=== PATIENT | male | born 1950 | race Caucasian/White ===

== ENCOUNTER 2019-07-31 15:19 | Inpatient (IN) | payer MEDICARE, OTHER ==
[~2019-07-31] VITALS: Ht 182.9 cm; Wt 103.6 kg
[~2019-07-31 15:19] MED LIST: ASPI-845 PO
[2019-07-31 15:54] LABS: BASOPHILS # (AUTO) 0.1 X10'3 (0-0.2); BASOPHILS % (AUTO) 0.2 % (0-1); EOSINOPHILS % (AUTO) 0 % (0-6); HEMATOCRIT 47.9 % (42.0-52.0); HEMOGLOBIN 16.1 g/dl (14.0-17.9); LYMPHOCYTES # (AUTO) 0.8 X10'3 (1.1-4.8); LYMPHOCYTES % (AUTO) 2.7 % (21-51); MEAN CORPUSCULAR HEMOGLOBIN 28.7 PG (27.0-31.0); MEAN CORPUSCULAR HGB CONC 33.5 g/dL (33.0-36.5); MEAN CORPUSCULAR VOLUME 85.5 FL (78-98); MEAN PLATELET VOLUME 8.1 FL (7.4-10.4); MONOCYTES # (AUTO) 1.7 X10'3 (0-0.9); MONOCYTES % (AUTO) 5.7 % (2-12); NEUTROPHILS # (AUTO) 28.2 X10'3 (1.8-7.7); NEUTROPHILS % (AUTO) 91.4 % (42-75); PLATELET COUNT 264 X10'3 (140-440); RED BLOOD COUNT 5.61 X10'6 (4.70-6.10); RED CELL DISTRIBUTION WIDTH 13.7 % (11.5-14.5)
[2019-07-31 15:57] LABS: WHITE BLOOD COUNT 30.8 X10'3 (4.5-11.0)
[2019-07-31] MEDS ORDERED: acetaminophen 325mg tablet PO STA (15:57)
[2019-07-31] MEDS ORDERED: normal saline 1000ML IV soln IV ONE ×2 (16:00→16:25)
[2019-07-31 16:03] LABS: ALANINE AMINOTRANSFERASE 24 U/L (12-78); ALBUMIN 3.2 G/DL (3.4-5.0); ALBUMIN/GLOBULIN RATIO 0.7 (1.1-1.5); ALKALINE PHOSPHATASE 82 IU/L (46-116); ANION GAP 10 (8-16); ASPARTATE AMINO TRANSFERASE 20 U/L (10-37); BILIRUBIN,TOTAL 0.7 MG/DL (0.1-1.0); BLOOD UREA NITROGEN 18 MG/DL (7-18); BUN/CREATININE RATIO 12.7 (5.4-32.0); CALCIUM 8.2 MG/DL (8.5-10.1); CHLORIDE 100 MMOL/L (99-107); CREATININE 1.42 MG/DL (0.60-1.10); GLUCOSE 124 MG/DL (70-104); POTASSIUM 3.9 MMOL/L (3.5-5.1); SODIUM 135 MMOL/L (135-145); TOTAL CARBON DIOXIDE 24.7 MMOL/L (24-32); TOTAL PROTEIN 7.9 G/DL (6.4-8.2); eGFR 49 ML/MIN
[2019-07-31 16:12] LABS: MAGNESIUM 1.6 MG/DL (1.5-2.4)
[2019-07-31 16:15] LABS: PLATELET ESTIMATE NORMAL; TOTAL CELLS COUNTED 100
[2019-07-31] MEDS ORDERED: CefTRIAXone 2gm/D5W 50ml 50 ML IV ONE (16:25)
[2019-07-31] MEDS ORDERED: levoFLOXACIN-Levaquin 750MG/D5 150 ML IV ONE (16:25)
[2019-07-31 16:32] LABS: PARTIAL THROMBOPLASTIN TIME 28 SECONDS (22-32)
--- NOTE | 2019-07-31 16:38 | NUR ---
PT HAVING A VASCULAR STUDY ON HIS CAROTID DONE AT BEDSIDE.
[2019-07-31] MEDS ORDERED: BRIM5DRO3 EACHEYE (17:50)
[2019-07-31] MEDS ORDERED: MULT-1085 PO (17:50)
[2019-07-31] MEDS ORDERED: ASPI-107 PO (17:50)
[2019-07-31 17:51] LABS: CLARITY,URINE CLOUDY (Clear); COLOR,URINE YELLOW (Yellow); GLUCOSE, URINE NEGATIVE (Neg); KETONES,URINE TRACE mg/dl (Neg); LEUKOCYTE ESTERASE ,URINE NEGATIVE (Neg); NITRITES, URINE NEGATIVE (Neg); OCCULT BLOOD,URINE TRACE-INTACT (Neg); PROTEIN,URINE 100 mg/dl (Neg)
[2019-07-31] MEDS ORDERED: iohexol 350MG/ML 100ml bottle IV ONE (17:52)
[2019-07-31] MEDS ORDERED: potassium Cl 20 mEq SR tablet PO PRN (18:00)
[2019-07-31] MEDS ORDERED: morphine 4 MG/ML inj SYRINge IV PRN (18:00)
[2019-07-31] MEDS ORDERED: ondansetron/PF 4mg/2ml inj IV PRN (18:00)
[2019-07-31] MEDS ORDERED: CefTRIAXone/D5W-Rocephin 1gm 50 ML IV ONE (18:00)
[2019-07-31] MEDS ORDERED: potassium CL 10mEq/100ml bag 100 ML IV PRN ×2 (18:00)
[2019-07-31] MEDS ORDERED: morphine 2 MG/ML inj. syringe IV PRN (18:00)
[2019-07-31] MEDS ORDERED: acetaminophen 325mg tablet PO PRN (18:00)
[2019-07-31 18:01] LABS: UA COLLECTION TYPE FOLEY CATH
[2019-07-31 18:09] LABS: RBC,URINE 0-2 /HPF (0-2)
[2019-07-31 18:10] LABS: AMORPHOUS URATES 3+
[2019-07-31 18:11] LABS: BACTERIA,URINE FEW /HPF (Neg); MUCUS STRANDS MODERATE /LPF (Neg); SQUAMOUS EPITHELIAL CELL,UR NONE SEEN /LPF (FEW); TRANSITIONAL EPI CELLS,URINE MODERATE /HPF
[2019-07-31 18:14] LABS: CELLULAR CAST 0-4 /LPF (NEGATIVE); FINE GRANULAR CAST 0-3 /LPF (NEGATIVE)
[2019-07-31] MEDS: heparin 25,000 UNIT/250ml bag 250 ML IV SCH (18:25)
[2019-07-31] MEDS: heparin 10,000 units/1 ML INJ IV PRN (18:35)
--- NOTE | 2019-07-31 18:39 | NUR ---
PT LYING SUPINE IN BED WITH FAMILY AT BEDSIDE. UPDATED PT ON PLAN OF CARE. NO DISTRESS NOTED. NO FURTHER NEEDS. WILL CONTINUE TO MONITOR.
[2019-07-31] MEDS ORDERED: heparin, porcine 5000 units/ml vial SQ SCH (20:00)
[2019-07-31] MEDS: docusate sod 100mg capsule PO SCH (20:00)
[2019-07-31 20:03] VITALS: BP 123/72
[2019-07-31] MEDS: normal saline 1000ml 1,000 ML IV SCH (20:43)
--- NOTE | 2019-07-31 20:52 | NUR ---
Dr. Marks at bedside assessing patient. States regular diet need to find source of infection prior to or for carotid stenosis, Dr Marks stated OR saturday if infection is controlled
[2019-07-31 21:00] VITALS: BP 123/75
[2019-07-31] MEDS: sennosides/docusate sodium tablet PO SCH (21:00)
[2019-07-31 22:00] VITALS: BP 111/81
[2019-07-31 23:00] VITALS: BP 136/84
[2019-08-01] VITALS (24 sets, daily range): BP systolic 132–177; BP diastolic 75–107
[2019-08-01] MEDS: brimonidine 0.2% 5 ML ophthalmic drops EACHEYE SCH ×3 (00:27→20:27)
[2019-08-01] MEDS: normal saline 1000ml 1,000 ML IV SCH ×5 (00:36→23:45)
[2019-08-01] MEDS: heparin 25,000 UNIT/250ml bag 250 ML IV SCH ×2 (04:27→22:22)
[2019-08-01 06:15] LABS: ALANINE AMINOTRANSFERASE 17 U/L (12-78); ALBUMIN 2.4 G/DL (3.4-5.0); ALBUMIN/GLOBULIN RATIO 0.6 (1.1-1.5); ALKALINE PHOSPHATASE 64 IU/L (46-116); ANION GAP 9 (8-16); ASPARTATE AMINO TRANSFERASE 9 U/L (10-37); BILIRUBIN,TOTAL 0.5 MG/DL (0.1-1.0); BLOOD UREA NITROGEN 17 MG/DL (7-18); BUN/CREATININE RATIO 18.7 (5.4-32.0); CALCIUM 7.2 MG/DL (8.5-10.1); CHLORIDE 104 MMOL/L (99-107); CREATININE 0.91 MG/DL (0.60-1.10); GLUCOSE 97 MG/DL (70-104); MAGNESIUM 1.6 MG/DL (1.5-2.4); PHOSPHORUS 2.3 MG/DL (2.3-4.5); POTASSIUM 3.7 MMOL/L (3.5-5.1); SODIUM 136 MMOL/L (135-145); TOTAL CARBON DIOXIDE 23.1 MMOL/L (24-32); TOTAL PROTEIN 6.3 G/DL (6.4-8.2); eGFR 82 ML/MIN
[2019-08-01 06:24] LABS: BASOPHILS % (AUTO) 0.1 % (0-1); EOSINOPHILS % (AUTO) 0 % (0-6); HEMATOCRIT 41.6 % (42.0-52.0); HEMOGLOBIN 13.7 g/dl (14.0-17.9); LYMPHOCYTES # (AUTO) 0.8 X10'3 (1.1-4.8); LYMPHOCYTES % (AUTO) 3.8 % (21-51); MEAN CORPUSCULAR HEMOGLOBIN 28.6 PG (27.0-31.0); MEAN CORPUSCULAR VOLUME 86.6 FL (78-98); MEAN PLATELET VOLUME 8.3 FL (7.4-10.4); MONOCYTES # (AUTO) 1.1 X10'3 (0-0.9); MONOCYTES % (AUTO) 5.5 % (2-12); NEUTROPHILS # (AUTO) 18.2 X10'3 (1.8-7.7); NEUTROPHILS % (AUTO) 90.6 % (42-75); PLATELET COUNT 221 X10'3 (140-440); RED CELL DISTRIBUTION WIDTH 13.4 % (11.5-14.5); WHITE BLOOD COUNT 20.1 X10'3 (4.5-11.0)
--- NOTE | 2019-08-01 06:42 | NUR ---
SBAR to Gatito STANLEY no questions or concerns after assuming care
[2019-08-01] MEDS: docusate sod 100mg capsule PO SCH ×2 (08:00→20:00)
[2019-08-01] MEDS: heparin 10,000 units/1 ML INJ IV PRN ×3 (08:28→22:23)
[2019-08-01] MEDS: aspirin 81mg tablet.DR PO SCH (08:34)
[2019-08-01] MEDS: clopidogrel 75mg tablet PO SCH (08:34)
[2019-08-01] MEDS: multivitamins, therapeutics tablet PO SCH (08:34)
[2019-08-01] MEDS: CefTRIAXone/D5W-Rocephin 1gm 50 ML IV SCH (08:41)
[2019-08-01] MEDS: acetaminophen 325mg tablet PO PRN ×2 (11:04→16:40)
[2019-08-01 17:55] LABS: C DIFF SPECIMEN=DIARRHEA? ACCEPTABLE; C DIFFICILE TOXINS A&B NEGATIVE (Neg)
[2019-08-01 17:56] LABS: C DIFF ANTIGEN NEGATIVE (NEGATIVE)
--- NOTE | 2019-08-01 18:47 | NUR ---
Patient in room CICU 2011. I have received report from Gatito STANLEY and had the opportunity to ask questions and assume patient care. Patient resting in bed comfortably with family at bedside, in no apparent distress. Patient saturating at 95% on room air, HR in low 100s in sinus tachycardia. Heparin infusing per MD orders. Will continue to monitor patient.
[2019-08-01] MEDS: sennosides/docusate sodium tablet PO SCH (20:25)
[2019-08-02] VITALS (17 sets, daily range): BP systolic 107–170; BP diastolic 64–109
[2019-08-02 06:08] LABS: BASOPHILS % (AUTO) 0.3 % (0-1); EOSINOPHILS % (AUTO) 0 % (0-6); HEMATOCRIT 39.8 % (42.0-52.0); HEMOGLOBIN 13.4 g/dl (14.0-17.9); LYMPHOCYTES % (AUTO) 5.5 % (21-51); MEAN CORPUSCULAR HEMOGLOBIN 28.6 PG (27.0-31.0); MEAN CORPUSCULAR HGB CONC 33.7 g/dL (33.0-36.5); MEAN CORPUSCULAR VOLUME 84.8 FL (78-98); MEAN PLATELET VOLUME 8.3 FL (7.4-10.4); MONOCYTES # (AUTO) 1.1 X10'3 (0-0.9); MONOCYTES % (AUTO) 5.9 % (2-12); NEUTROPHILS # (AUTO) 16.2 X10'3 (1.8-7.7); NEUTROPHILS % (AUTO) 88.3 % (42-75); PLATELET COUNT 216 X10'3 (140-440); RED CELL DISTRIBUTION WIDTH 13.4 % (11.5-14.5); WHITE BLOOD COUNT 18.4 X10'3 (4.5-11.0)
[2019-08-02] MEDS: heparin 10,000 units/1 ML INJ IV PRN (06:32)
--- NOTE | 2019-08-02 06:34 | NUR ---
Problems reprioritized. Patient report given, questions answered & plan of care reviewed with Huma STANLEY.
[2019-08-02 06:44] LABS: ALANINE AMINOTRANSFERASE 18 U/L (12-78); ALBUMIN 2.4 G/DL (3.4-5.0); ALBUMIN/GLOBULIN RATIO 0.6 (1.1-1.5); ALKALINE PHOSPHATASE 74 IU/L (46-116); ANION GAP 9 (8-16); ASPARTATE AMINO TRANSFERASE 20 U/L (10-37); BILIRUBIN,TOTAL 0.3 MG/DL (0.1-1.0); BLOOD UREA NITROGEN 11 MG/DL (7-18); BUN/CREATININE RATIO 14.3 (5.4-32.0); CALCIUM 7.7 MG/DL (8.5-10.1); CHLORIDE 104 MMOL/L (99-107); CREATININE 0.77 MG/DL (0.60-1.10); GLUCOSE 100 MG/DL (70-104); PHOSPHORUS 2.1 MG/DL (2.3-4.5); POTASSIUM 3.5 MMOL/L (3.5-5.1); SODIUM 138 MMOL/L (135-145); TOTAL CARBON DIOXIDE 25.2 MMOL/L (24-32); TOTAL PROTEIN 6.6 G/DL (6.4-8.2); eGFR > 90 ML/MIN
[2019-08-02] MEDS: aspirin 81mg tablet.DR PO SCH (07:57)
[2019-08-02] MEDS: clopidogrel 75mg tablet PO SCH (07:57)
[2019-08-02] MEDS: HYDROcodone/acetaminophen 10/325mg tab PO PRN ×3 (07:57→19:29)
[2019-08-02] MEDS: multivitamins, therapeutics tablet PO SCH (07:57)
[2019-08-02] MEDS: CefTRIAXone/D5W-Rocephin 1gm 50 ML IV SCH (07:58)
[2019-08-02] MEDS: docusate sod 100mg capsule PO SCH ×2 (08:00→20:43)
[2019-08-02] MEDS: brimonidine 0.2% 5 ML ophthalmic drops EACHEYE SCH ×2 (08:16→20:43)
[2019-08-02 13:07] LABS: PARTIAL THROMBOPLASTIN TIME 45 SECONDS (22-32)
--- NOTE | 2019-08-02 15:48 | NUR ---
Received report from Bonifay COMPOSITION ROOFER at this time.
--- NOTE | 2019-08-02 16:15 | NUR ---
transfered to 313, pt walked from ICU room to 313 without trouble, on monitor and RN in attendance , pt tolerated well. all valuables taken, report has already been called to floor RN.
--- NOTE | 2019-08-02 16:20 | NUR ---
Patient arrived to ACCE 313.
[2019-08-02] MEDS: heparin 25,000 UNIT/250ml bag 250 ML IV SCH (17:07)
--- NOTE | 2019-08-02 18:00 | NUR ---
Patient in room MED 313. I have received report from Benita STANLEY and had the opportunity to ask questions and assume patient care.
--- NOTE | 2019-08-02 18:17 | NUR ---
Problems reprioritized. Patient report given, questions answered & plan of care reviewed with LIZETH Delatorre.
[2019-08-02 18:40] LABS: PARTIAL THROMBOPLASTIN TIME 45 SECONDS (22-32)
--- NOTE | 2019-08-02 19:00 | NUR ---
Contacted Terri Fowler regarding patient's high blood pressures. Patient's BP were 173/110, 171/109. I looked through the vitals to see the trend from today. I reported this to Terri Fowler and she stated that per Dr. Moreno: He is aware of high BP and to contact if SBP is >190. He is OK with the higher pressures for perfusion.
--- NOTE | 2019-08-02 19:00 | NUR ---
Left the floor with patient to go have CT scan. Patient left floor in a w/c. He was alert and oriented and in a stable condition.
[2019-08-02] MEDS ORDERED: iohexol 300mg/ml 100ml inj. ONE (19:12)
--- NOTE | 2019-08-02 19:30 | NUR ---
Arrived back to the ACCE unit with patient after having been to CT Scan. Patient tolerated well. He is alert and oriented and in a stable condition. He stood from the w/c and transferred to the bed.
--- NOTE | 2019-08-02 19:45 | NUR ---
Stopped Heparin drip per MD orders and the normal saline per MD orders.
--- NOTE | 2019-08-02 20:35 | NUR ---
Orders from earlier today show that the Heparin to be d/c per MD order. Patient had CT scan of Right lower extremity, this report showed no abscess. Contacted Dr. Enamorado to let him know about the results and asked him if he would like to restart the Heparin due to no abscess/no surgical intervention ie: draining of an abscess. Per Dr. Enamorado, pt is on Plavix and aspirin so there is no need to continue heparin.
[2019-08-02] MEDS: sennosides/docusate sodium tablet PO SCH (20:43)
--- NOTE | 2019-08-03 00:27 | NUR ---
Patient had BM, order for occult stool sample, hermelinda red blood on wipes, stool was very small particulate unable to obtain sample. Will try again later. Addendum: 08/03/19 at 0029 by Erica Tavarez RN Patient reports this is from hemorrhoids.
[2019-08-03] MEDS: HYDROcodone/acetaminophen 10/325mg tab PO PRN ×4 (00:37→19:44)
[2019-08-03 04:47] LABS: BASOPHILS % (AUTO) 0.1 % (0-1); EOSINOPHILS % (AUTO) 0.5 % (0-6); HEMATOCRIT 39.9 % (42.0-52.0); HEMOGLOBIN 13.5 g/dl (14.0-17.9); LYMPHOCYTES % (AUTO) 10.4 % (21-51); MEAN CORPUSCULAR HEMOGLOBIN 29.1 PG (27.0-31.0); MEAN CORPUSCULAR HGB CONC 33.9 g/dL (33.0-36.5); MEAN PLATELET VOLUME 7.8 FL (7.4-10.4); MONOCYTES # (AUTO) 0.8 X10'3 (0-0.9); MONOCYTES % (AUTO) 9.1 % (2-12); NEUTROPHILS # (AUTO) 7.4 X10'3 (1.8-7.7); NEUTROPHILS % (AUTO) 79.9 % (42-75); PLATELET COUNT 210 X10'3 (140-440); RED BLOOD COUNT 4.64 X10'6 (4.70-6.10); RED CELL DISTRIBUTION WIDTH 13.6 % (11.5-14.5); WHITE BLOOD COUNT 9.2 X10'3 (4.5-11.0)
[2019-08-03 04:54] LABS: ALANINE AMINOTRANSFERASE 21 U/L (12-78); ALBUMIN 2.3 G/DL (3.4-5.0); ALBUMIN/GLOBULIN RATIO 0.5 (1.1-1.5); ALKALINE PHOSPHATASE 62 IU/L (46-116); ANION GAP 6 (8-16); ASPARTATE AMINO TRANSFERASE 20 U/L (10-37); BILIRUBIN,TOTAL 0.3 MG/DL (0.1-1.0); BLOOD UREA NITROGEN 10 MG/DL (7-18); BUN/CREATININE RATIO 13.5 (5.4-32.0); CALCIUM 7.9 MG/DL (8.5-10.1); CHLORIDE 104 MMOL/L (99-107); CREATININE 0.74 MG/DL (0.60-1.10); GLUCOSE 95 MG/DL (70-104); PHOSPHORUS 2.7 MG/DL (2.3-4.5); POTASSIUM 3.5 MMOL/L (3.5-5.1); SODIUM 138 MMOL/L (135-145); TOTAL CARBON DIOXIDE 27.6 MMOL/L (24-32); TOTAL PROTEIN 6.8 G/DL (6.4-8.2); eGFR > 90 ML/MIN
--- NOTE | 2019-08-03 05:37 | NUR ---
Orienteer documentation: I have reviewed and agree with all interventions, assessments performed and documented by Nandini Zambrano RN. Orienteer Medication Administration: For this medication-pass time frame, all medication were reviewed, dispensed, administered and documented per hospital policy by Nandini Zambrano RN.
--- NOTE | 2019-08-03 06:28 | NUR ---
Problems reprioritized. Patient report given, questions answered & plan of care reviewed with Samson STANLEY [].
[2019-08-03 06:45] VITALS: BP 148/95
--- NOTE | 2019-08-03 06:53 | NUR ---
Patient in room MED 313. I have received report from LIZETH Delatorre and had the opportunity to ask questions and assume patient care.
[2019-08-03] MEDS: clopidogrel 75mg tablet PO SCH (08:09)
[2019-08-03] MEDS: docusate sod 100mg capsule PO SCH ×2 (08:09→19:42)
[2019-08-03] MEDS: brimonidine 0.2% 5 ML ophthalmic drops EACHEYE SCH ×2 (08:09→19:57)
[2019-08-03] MEDS: aspirin 81mg tablet.DR PO SCH (08:10)
[2019-08-03] MEDS: CefTRIAXone/D5W-Rocephin 1gm 50 ML IV SCH (08:10)
[2019-08-03] MEDS: multivitamins, therapeutics tablet PO SCH (08:10)
[2019-08-03 11:00] VITALS: BP 159/92
[2019-08-03] MEDS ORDERED: CefTRIAXone/D5W-Rocephin 1gm 50 ML IV ONE (11:55)
[2019-08-03 15:00] VITALS: BP 165/102
[2019-08-03] MEDS: CLINDAMYCIN/D5W 900mg/50ml 50 ML IV SCH ×2 (16:29→23:41)
[2019-08-03 18:00] VITALS: BP 180/90
--- NOTE | 2019-08-03 18:15 | NUR ---
Patient in room MED 313. I have received report from Samson RN/Nadja RN (orienteer) and had the opportunity to ask questions and assume patient care.
--- NOTE | 2019-08-03 18:19 | NUR ---
Orienteer documentation: I have reviewed and agree with all interventions, assessments performed and documented by Rachael STANLEY.
--- NOTE | 2019-08-03 18:26 | NUR ---
Problems reprioritized. Patient report given, questions answered & plan of care reviewed with Erica STANLEY and Marley STANLEY.
[2019-08-03] MEDS: sennosides/docusate sodium tablet PO SCH (19:41)
[2019-08-03] MEDS: lactobacillus rhamnosus 10,000 MMU CELLS/CAPSULE PO SCH (19:42)
--- NOTE | 2019-08-03 20:00 | NUR ---
Dr. Marks call to see if Dr. Pimentel had been to see the patient, I reported to him that I did not receive that in report and that there is not a consult in the chart but there were changes made to the antibiotic therapy.
--- NOTE | 2019-08-03 20:15 | NUR ---
Dr. Marks called back again to make sure that the patient was aware that he would not be having surgery on Saturday. He was tentatively scheduled for a left Carotid Endarterectomy.
[2019-08-03 22:00] VITALS: BP 141/90
[2019-08-04 02:00] VITALS: BP 148/83
[2019-08-04 06:00] VITALS: BP 167/96
[2019-08-04 06:03] LABS: BASOPHILS % (AUTO) 0.3 % (0-1); EOSINOPHILS % (AUTO) 0.5 % (0-6); HEMATOCRIT 40.8 % (42.0-52.0); HEMOGLOBIN 13.8 g/dl (14.0-17.9); LYMPHOCYTES % (AUTO) 11.3 % (21-51); MEAN CORPUSCULAR HEMOGLOBIN 28.7 PG (27.0-31.0); MEAN CORPUSCULAR VOLUME 84.7 FL (78-98); MEAN PLATELET VOLUME 7.4 FL (7.4-10.4); MONOCYTES # (AUTO) 1.1 X10'3 (0-0.9); MONOCYTES % (AUTO) 12.8 % (2-12); NEUTROPHILS # (AUTO) 6.5 X10'3 (1.8-7.7); NEUTROPHILS % (AUTO) 75.1 % (42-75); PLATELET COUNT 244 X10'3 (140-440); RED BLOOD COUNT 4.82 X10'6 (4.70-6.10); RED CELL DISTRIBUTION WIDTH 13.5 % (11.5-14.5); WHITE BLOOD COUNT 8.6 X10'3 (4.5-11.0)
--- NOTE | 2019-08-04 06:21 | NUR ---
Problems reprioritized. Patient report given, questions answered & plan of care reviewed with LIZETH Comer and LIZETH Saez (orienteer).
--- NOTE | 2019-08-04 06:47 | NUR ---
Patient in room MED 313. I have received report from Erica RN and Marley RN and had the opportunity to ask questions and assume patient care.
[2019-08-04 06:48] LABS: ALANINE AMINOTRANSFERASE 26 U/L (12-78); ALBUMIN 2.2 G/DL (3.4-5.0); ALBUMIN/GLOBULIN RATIO 0.5 (1.1-1.5); ALKALINE PHOSPHATASE 64 IU/L (46-116); ANION GAP 9 (8-16); ASPARTATE AMINO TRANSFERASE 23 U/L (10-37); BILIRUBIN,TOTAL 0.4 MG/DL (0.1-1.0); BLOOD UREA NITROGEN 9 MG/DL (7-18); BUN/CREATININE RATIO 12.2 (5.4-32.0); CHLORIDE 103 MMOL/L (99-107); CREATININE 0.74 MG/DL (0.60-1.10); GLUCOSE 92 MG/DL (70-104); MAGNESIUM 2.1 MG/DL (1.5-2.4); PHOSPHORUS 3.3 MG/DL (2.3-4.5); POTASSIUM 3.3 MMOL/L (3.5-5.1); SODIUM 139 MMOL/L (135-145); TOTAL CARBON DIOXIDE 26.8 MMOL/L (24-32); TOTAL PROTEIN 6.9 G/DL (6.4-8.2); eGFR > 90 ML/MIN
[2019-08-04] MEDS: potassium Cl 20 mEq SR tablet PO PRN ×3 (07:35→17:30)
[2019-08-04] MEDS: docusate sod 100mg capsule PO SCH ×2 (07:37→19:58)
[2019-08-04] MEDS: lactobacillus rhamnosus 10,000 MMU CELLS/CAPSULE PO SCH ×2 (07:37→19:57)
[2019-08-04] MEDS: HYDROcodone/acetaminophen 10/325mg tab PO PRN (07:37)
[2019-08-04] MEDS: clopidogrel 75mg tablet PO SCH (07:37)
[2019-08-04] MEDS: multivitamins, therapeutics tablet PO SCH (07:37)
[2019-08-04] MEDS: brimonidine 0.2% 5 ML ophthalmic drops EACHEYE SCH ×2 (07:38→19:56)
[2019-08-04] MEDS: CLINDAMYCIN/D5W 900mg/50ml 50 ML IV SCH ×3 (07:38→23:51)
[2019-08-04] MEDS ORDERED: CefTRIAXone 2gm/D5W 50ml 50 ML IV SCH (08:00)
[2019-08-04] MEDS ORDERED: triamcinolone acet 0.1% cream 15gm TP SCH (08:00)
[2019-08-04] MEDS: aspirin 81mg tablet.DR PO SCH (08:27)
[2019-08-04] MEDS: penicillin G potassium inj 3,000,000 UNIT in normal saline 100ml IV soln 100 ML IV SCH ×5 (09:27→23:51)
[2019-08-04 11:00] VITALS: BP 149/97
[2019-08-04 15:00] VITALS: BP 157/106
[2019-08-04] MEDS: mometasone furoate 0.1% cream 15gm tube TP SCH (15:40)
[2019-08-04 18:00] VITALS: BP 166/99
--- NOTE | 2019-08-04 18:15 | NUR ---
Patient in room MED 313. I have received report from Nahomi RN and LIZETH Saez (orienteer) and had the opportunity to ask questions and assume patient care.
--- NOTE | 2019-08-04 18:30 | NUR ---
Problems reprioritized. Patient report given, questions answered & plan of care reviewed with LIZETH Roach.
--- NOTE | 2019-08-04 19:00 | NUR ---
started new 18 G PIV to Left wrist. d/c both right arm PIV both 20G, catheters intact, pt tolerated well.
[2019-08-04] MEDS: carvedilol 6.25mg tablet PO SCH (19:58)
[2019-08-04] MEDS: sennosides/docusate sodium tablet PO SCH (20:16)
[2019-08-04 22:00] VITALS: BP 132/78
--- NOTE | 2019-08-05 01:15 | NUR ---
This patient sat up on the side of his bed and staff went in to check on him because he has IV abx running and there is concern that he will pull out the IV. During the time period patient began to become loud with staff, stating that he doesn't understand why he is having all of these "bags of stuff" going into him. He is disoriented and confused. He is irrational and not convinced about where and why he is here. Myself and LIZETH Norwood were both in the room with the patient speaking with the patient. He thought that it was daytime and that he had left the hospital yesterday. He thinks he is somewhere else and not in the hospital. He starts calling his daughter Stefani multiple times. He is shouting at her, asking her to come get him, stating he doesn't feel safe. His daughter Stefani spoke with LIZETH Norwood. She was updated on how the patient's night had gone and what was presently going on with the patient. Stefani stated that her father had been confused on and off throughout the day. When the family was here earlier in the shift, he did have moments of confusion but he was easily reoriented at that time. This time he was not. He did finally settle down after he hung up on his daughter and stated that " I guess my daughter doesn't care about me, she isn't coming to get me. I"ll just lay here." He did settle in and then he asked if he could use the commode and he was taken by Charge nurse, LIZETH Norwood. I will report this incident to dayshift staff and continue to monitor patient for duration of shift.
[2019-08-05] MEDS: penicillin G potassium inj 3,000,000 UNIT in normal saline 100ml IV soln 100 ML IV SCH ×6 (04:08→23:51)
--- NOTE | 2019-08-05 04:24 | NUR ---
Went in patient's room to hang last abx drip for the shift. Patient was awake but laying down. I asked him how he was doing, and completed the med pass. I went out of the room and the patient started speaking to me and so I came back into the room. He repeated himself asking if I would take out his IV. I asked him why, and he stated "because I'm done with all this stuff". I explained to him that I could not remove his IV, and then he began ripping off his electrodes and pulling the cord from the monitor. He ripped off his patient band and started to pull off his blood band. He started calling his daughter during this time telling her to come get him and bring his wallet and house keys. I convinced him to allow me to speak with his daughter and asked her to please come and sit with him because it would help him to have a family member here with him. We stopped his abx from running a saline locked him because he tries to sit up and we felt it would be better to SL his IV for his safety at this time. I will await the arrival of his daughter. Charge nurse Enma contacted RIKA Samson at 0420 and left a message, waiting for his call back as well.
--- NOTE | 2019-08-05 06:22 | NUR ---
Problems reprioritized. Patient report given, questions answered & plan of care reviewed with Yas STANLEY, LIZETH Licona (orienteer) and LIZETH Lake (orienteer).
[2019-08-05 06:30] VITALS: BP 150/97
--- NOTE | 2019-08-05 06:47 | NUR ---
Orienteer documentation: I have reviewed and agree with all interventions, assessments performed and documented by LIZETH Roach. Orienteer Medication Administration: For this medication-pass time frame, all medication were reviewed, dispensed, administered and documented per hospital policy by LIZETH Roach.
[2019-08-05] MEDS: mometasone furoate 0.1% cream 15gm tube TP SCH (08:00)
--- NOTE | 2019-08-05 08:00 | NUR ---
PATIENT UP TO TOILET STATES " HE HAD BM AND MISSED HAT . SO HE FLUSHED TOILET." TWO HATS NOW PLACED WITH TOILET. Addendum: 08/05/19 at 1623 by Sayda Rascon RN Amended: Links added.
[2019-08-05 09:15] LABS: BASOPHILS % (AUTO) 0.4 % (0-1); EOSINOPHILS # (AUTO) 0.1 X10'3 (0-0.9); EOSINOPHILS % (AUTO) 1.1 % (0-6); HEMOGLOBIN 14.4 g/dl (14.0-17.9); LYMPHOCYTES # (AUTO) 1.2 X10'3 (1.1-4.8); LYMPHOCYTES % (AUTO) 14.3 % (21-51); MEAN CORPUSCULAR HEMOGLOBIN 28.8 PG (27.0-31.0); MEAN CORPUSCULAR HGB CONC 34.2 g/dL (33.0-36.5); MEAN CORPUSCULAR VOLUME 84.3 FL (78-98); MONOCYTES # (AUTO) 1.1 X10'3 (0-0.9); MONOCYTES % (AUTO) 13.5 % (2-12); NEUTROPHILS % (AUTO) 70.7 % (42-75); PLATELET COUNT 272 X10'3 (140-440); RED BLOOD COUNT 4.99 X10'6 (4.70-6.10); RED CELL DISTRIBUTION WIDTH 13.5 % (11.5-14.5); WHITE BLOOD COUNT 8.5 X10'3 (4.5-11.0)
[2019-08-05 09:27] LABS: ALANINE AMINOTRANSFERASE 37 U/L (12-78); ALBUMIN 2.2 G/DL (3.4-5.0); ALBUMIN/GLOBULIN RATIO 0.4 (1.1-1.5); ALKALINE PHOSPHATASE 67 IU/L (46-116); ANION GAP 8 (8-16); ASPARTATE AMINO TRANSFERASE 28 U/L (10-37); BILIRUBIN,TOTAL 0.4 MG/DL (0.1-1.0); BLOOD UREA NITROGEN 10 MG/DL (7-18); BUN/CREATININE RATIO 14.1 (5.4-32.0); CALCIUM 8.3 MG/DL (8.5-10.1); CHLORIDE 104 MMOL/L (99-107); CREATININE 0.71 MG/DL (0.60-1.10); GLUCOSE 101 MG/DL (70-104); MAGNESIUM 2.1 MG/DL (1.5-2.4); POTASSIUM 3.9 MMOL/L (3.5-5.1); SODIUM 138 MMOL/L (135-145); TOTAL CARBON DIOXIDE 25.8 MMOL/L (24-32); TOTAL PROTEIN 7.2 G/DL (6.4-8.2); eGFR > 90 ML/MIN
[2019-08-05] MEDS: brimonidine 0.2% 5 ML ophthalmic drops EACHEYE SCH ×2 (09:30→20:11)
[2019-08-05] MEDS: CLINDAMYCIN/D5W 900mg/50ml 50 ML IV SCH ×2 (09:31→23:53)
[2019-08-05] MEDS: aspirin 81mg tablet.DR PO SCH (09:31)
[2019-08-05] MEDS: lactobacillus rhamnosus 10,000 MMU CELLS/CAPSULE PO SCH ×2 (09:31→20:08)
[2019-08-05] MEDS: docusate sod 100mg capsule PO SCH ×2 (09:31→20:08)
[2019-08-05] MEDS: clopidogrel 75mg tablet PO SCH (09:32)
[2019-08-05] MEDS: carvedilol 6.25mg tablet PO SCH ×2 (09:32→20:08)
[2019-08-05] MEDS: lisinopril 5mg tablet PO SCH (09:32)
[2019-08-05] MEDS: multivitamins, therapeutics tablet PO SCH (09:32)
[2019-08-05] MEDS: HYDROcodone/acetaminophen 5mg/325mg tablet PO PRN ×2 (10:04→20:19)
[2019-08-05 11:00] VITALS: BP 128/77
--- NOTE | 2019-08-05 12:06 | NUR ---
WOUND INFECTION EDUCATION PROVIDED BY WOUND CARE 1. Patient instructed to call their primary doctor, or go the ED immediately if any of the following symptoms occur: * Increased pain in wound * Increase in drainage from the wound * Redness in the skin surrounding the wound * Warmth in the skin surrounding the wound * Bleeding from the wound * Temperature of 101 or greater 2. If any of these occur while in the hospital tell a nurse immediately. Addendum: 08/05/19 at 1206 by Hector Mccarty RN Amended: Links added.
--- NOTE | 2019-08-05 14:46 | NUR ---
Initial: PO intake is good, does fluctuate between 100% PO intake and 0%. Patient documented as confused, needing orientation, poorer intakes may be associated with patient's confusion. Per MD note, patient has sepsis likely r/t RLE cellulitis. Patient may benefit from oral nutrition supplement, Ensure, for when his appetite and intake are suboptimal. Recommend: 1. continue regular diet 2. Recommend ONS, Ensure with meals, notifed MD 3. wt per rx Addendum: 08/05/19 at [address] Amended: Links added.
[2019-08-05 15:00] VITALS: BP 137/72
[2019-08-05 18:00] VITALS: BP 148/89
[2019-08-05] MEDS: lactose-reduced food (Ensure Enlive) - 237ml bottle PO SCH (18:00)
--- NOTE | 2019-08-05 18:00 | NUR ---
Patient in room MED 313. I have received report from LIZETH Nam, and had the opportunity to ask questions and assume patient care.
[2019-08-05] MEDS: sennosides/docusate sodium tablet PO SCH (20:09)
[2019-08-05 22:00] VITALS: BP 142/79
[2019-08-06] VITALS (15 sets, daily range): BP systolic 102–156; BP diastolic 64–97
[2019-08-06 04:51] LABS: BASOPHILS % (AUTO) 0.6 % (0-1); EOSINOPHILS # (AUTO) 0.3 X10'3 (0-0.9); EOSINOPHILS % (AUTO) 3.7 % (0-6); HEMATOCRIT 41.3 % (42.0-52.0); HEMOGLOBIN 14.2 g/dl (14.0-17.9); LYMPHOCYTES # (AUTO) 1.3 X10'3 (1.1-4.8); LYMPHOCYTES % (AUTO) 17.8 % (21-51); MEAN CORPUSCULAR HEMOGLOBIN 29.2 PG (27.0-31.0); MEAN CORPUSCULAR HGB CONC 34.3 g/dL (33.0-36.5); MEAN CORPUSCULAR VOLUME 85.2 FL (78-98); MEAN PLATELET VOLUME 7.2 FL (7.4-10.4); MONOCYTES # (AUTO) 0.9 X10'3 (0-0.9); MONOCYTES % (AUTO) 12.8 % (2-12); NEUTROPHILS # (AUTO) 4.6 X10'3 (1.8-7.7); NEUTROPHILS % (AUTO) 65.1 % (42-75); PLATELET COUNT 284 X10'3 (140-440); RED BLOOD COUNT 4.85 X10'6 (4.70-6.10); RED CELL DISTRIBUTION WIDTH 13.7 % (11.5-14.5); WHITE BLOOD COUNT 7.1 X10'3 (4.5-11.0)
[2019-08-06 05:03] LABS: PARTIAL THROMBOPLASTIN TIME 28 SECONDS (22-32)
[2019-08-06] MEDS: penicillin G potassium inj 3,000,000 UNIT in normal saline 100ml IV soln 100 ML IV SCH ×5 (05:05→22:05)
[2019-08-06 05:13] LABS: ALANINE AMINOTRANSFERASE 49 U/L (12-78); ALBUMIN 2.1 G/DL (3.4-5.0); ALBUMIN/GLOBULIN RATIO 0.4 (1.1-1.5); ALKALINE PHOSPHATASE 64 IU/L (46-116); ANION GAP 5 (8-16); ASPARTATE AMINO TRANSFERASE 34 U/L (10-37); BILIRUBIN,TOTAL 0.3 MG/DL (0.1-1.0); BLOOD UREA NITROGEN 14 MG/DL (7-18); BUN/CREATININE RATIO 19.7 (5.4-32.0); CALCIUM 8.2 MG/DL (8.5-10.1); CHLORIDE 105 MMOL/L (99-107); CREATININE 0.71 MG/DL (0.60-1.10); GLUCOSE 101 MG/DL (70-104); MAGNESIUM 2.1 MG/DL (1.5-2.4); PHOSPHORUS 3.8 MG/DL (2.3-4.5); POTASSIUM 3.9 MMOL/L (3.5-5.1); SODIUM 138 MMOL/L (135-145); eGFR > 90 ML/MIN
--- NOTE | 2019-08-06 06:00 | NUR ---
Reviewed and agreed with LIZETH Roach's charting
--- NOTE | 2019-08-06 06:21 | NUR ---
Problems reprioritized. Patient report given, questions answered & plan of care reviewed with Marley Edward RN and LIZETH Lake (orienteer).
--- NOTE | 2019-08-06 06:48 | NUR ---
Patient in room MED 313. I have received report from Connie STANLEY, Vernell STANLEY and had the opportunity to ask questions and assume patient care.
[2019-08-06] MEDS ORDERED: ringers solution, lacted 1,000 ML IV SCH (07:43)
[2019-08-06] MEDS ORDERED: morphine 4 MG/ML inj SYRINge IV PRN ×2 (07:45)
[2019-08-06] MEDS ORDERED: proCHLORperazine 10 MG/2 ml inj IV PRN (07:45)
[2019-08-06] MEDS ORDERED: meperidine/PF 25mg/ml syringe IV PRN ×3 (07:45)
[2019-08-06] MEDS ORDERED: ondansetron/PF 4mg/2ml inj IV PRN ×2 (07:45→20:40)
[2019-08-06] MEDS: brimonidine 0.2% 5 ML ophthalmic drops EACHEYE SCH ×2 (07:58→20:00)
[2019-08-06] MEDS: mometasone furoate 0.1% cream 15gm tube TP SCH (07:59)
[2019-08-06] MEDS: lactobacillus rhamnosus 10,000 MMU CELLS/CAPSULE PO SCH ×2 (08:00→20:00)
[2019-08-06] MEDS: docusate sod 100mg capsule PO SCH ×2 (08:00→20:00)
[2019-08-06] MEDS: lactose-reduced food (Ensure Enlive) - 237ml bottle PO SCH ×3 (08:00→18:00)
[2019-08-06] MEDS: clopidogrel 75mg tablet PO SCH (08:00)
[2019-08-06] MEDS: multivitamins, therapeutics tablet PO SCH (08:00)
[2019-08-06] MEDS: aspirin 81mg tablet.DR PO SCH (08:01)
[2019-08-06] MEDS: carvedilol 6.25mg tablet PO SCH ×2 (08:03→20:00)
[2019-08-06] MEDS: lisinopril 5mg tablet PO SCH (08:04)
[2019-08-06] MEDS: CLINDAMYCIN/D5W 900mg/50ml 50 ML IV SCH ×3 (08:08→15:55)
[2019-08-06 10:00] LABS: OCCULT BLOOD STOOL POSITIVE (Neg)
[2019-08-06] MEDS: HYDROcodone/acetaminophen 5mg/325mg tablet PO PRN (15:35)
[2019-08-06] MEDS: nitroPRUSSIDE (NIPRIDE) (200MCG/ML) 100ML Drip IV SCH (16:40)
[2019-08-06] MEDS: phenylephrine inj 20 MG in NS 250ml IV soln IV SCH (16:45)
[2019-08-06] MEDS ORDERED: heparin 10,000 units/1 ML INJ ONE (17:24)
[2019-08-06] MEDS ORDERED: ceFAZolin 1000mg inj ONE (17:24)
[2019-08-06] MEDS ORDERED: LIDOcaine 1% 30ml preserv. free vial ONE (17:24)
[2019-08-06] MEDS ORDERED: midazolam 2 mg/2 ml injection ONE (17:43)
[2019-08-06] MEDS ORDERED: fentaNYL /PF 50mcg/ml 5ml ampule ONE (17:44)
[2019-08-06] MEDS ORDERED: LIDOcaine 2% (20mg/ml) 5ml vial ONE (17:45)
[2019-08-06] MEDS ORDERED: rocuronium 10mg/ml inj IV ONE (17:45)
[2019-08-06] MEDS ORDERED: propofol inj 20 ML IV ONE ×2 (17:45→20:52)
[2019-08-06] MEDS ORDERED: ondansetron/PF 4mg/2ml inj ONE (17:49)
[2019-08-06] MEDS ORDERED: dexamethasone sod phosphate 10mg/ml inj ONE (17:49)
[2019-08-06] MEDS ORDERED: sevoflurane 250ml liquid IH ONE (17:49)
[2019-08-06] MEDS ORDERED: nitroPRUSSIDE 20mg/NS 100mL (0.2mg/mL) VIAL IV ONE (17:49)
[2019-08-06] MEDS ORDERED: protamine sulfate 10mg/ml inj. ONE (19:48)
[2019-08-06 20:25] LABS: PARTIAL THROMBOPLASTIN TIME 28 SECONDS (22-32)
[2019-08-06] MEDS ORDERED: HYDROcodone/acetaminophen 10/325mg tab PO PRN (20:40)
[2019-08-06] MEDS ORDERED: meperidine/PF 50mg/ml syringe ONE (20:58)
[2019-08-06] MEDS: sennosides/docusate sodium tablet PO SCH (21:00)
[2019-08-06] MEDS ORDERED: LORazepam 2 mg/ml vial ONE (21:10)
--- NOTE | 2019-08-06 21:10 | NUR ---
Pt arrived to CICU room 2013 accompanied by OR staff. Pt awakened violent upon arrival grabbing and pulling tightly left ESTEBAN line. Bilateral wrist restraints applied. Pt sedated per anesthesiologist Dr Fowler. Left ESTEBAN drain intact. Placed on simple mask oxygen @ 6L.
[2019-08-06] MEDS ORDERED: dexmedetomidin/NS 400mcg/100ml 100 ML IV SCH (21:15)
[2019-08-06] MEDS ORDERED: LORazepam 2 mg/ml vial IV ONE (22:10)
[2019-08-06] MEDS: potassium CL 20mEq in D5-1/2NS 1,000 ML IV SCH (23:03)
[2019-08-06] MEDS ORDERED: LORazepam 2 mg/ml vial IV PRN ×2 (23:35)
[2019-08-07] VITALS (31 sets, daily range): BP systolic 90–159; BP diastolic 61–105
[2019-08-07] MEDS: phenylephrine inj 20 MG in NS 250ml IV soln IV SCH ×2
[2019-08-07] MEDS: CLINDAMYCIN/D5W 900mg/50ml 50 ML IV SCH ×3 (02:00→19:21)
[2019-08-07] MEDS ORDERED: albumin (Human) 5% 250ml 250 ML IV ONE ×3 (02:45→04:00)
[2019-08-07 03:44] LABS: BASOPHILS % (AUTO) 0.2 % (0-1); EOSINOPHILS % (AUTO) 0.1 % (0-6); HEMATOCRIT 39.7 % (42.0-52.0); HEMOGLOBIN 13.5 g/dl (14.0-17.9); LYMPHOCYTES # (AUTO) 0.8 X10'3 (1.1-4.8); LYMPHOCYTES % (AUTO) 11.7 % (21-51); MEAN CORPUSCULAR HEMOGLOBIN 28.9 PG (27.0-31.0); MEAN CORPUSCULAR VOLUME 85.1 FL (78-98); MEAN PLATELET VOLUME 7.1 FL (7.4-10.4); MONOCYTES # (AUTO) 0.3 X10'3 (0-0.9); MONOCYTES % (AUTO) 4.4 % (2-12); NEUTROPHILS # (AUTO) 5.6 X10'3 (1.8-7.7); NEUTROPHILS % (AUTO) 83.6 % (42-75); PLATELET COUNT 357 X10'3 (140-440); RED BLOOD COUNT 4.67 X10'6 (4.70-6.10); RED CELL DISTRIBUTION WIDTH 13.3 % (11.5-14.5); WHITE BLOOD COUNT 6.6 X10'3 (4.5-11.0)
--- NOTE | 2019-08-07 03:48 | NUR ---
Dr Marks paged at [phone] regarding BP
--- NOTE | 2019-08-07 03:50 | NUR ---
Dr Marks returned call. Physician updated & orders received.
[2019-08-07 03:59] LABS: ALANINE AMINOTRANSFERASE 53 U/L (12-78); ALBUMIN 2.1 G/DL (3.4-5.0); ALBUMIN/GLOBULIN RATIO 0.4 (1.1-1.5); ALKALINE PHOSPHATASE 63 IU/L (46-116); ANION GAP 4 (8-16); ASPARTATE AMINO TRANSFERASE 30 U/L (10-37); BILIRUBIN,TOTAL 0.2 MG/DL (0.1-1.0); BLOOD UREA NITROGEN 17 MG/DL (7-18); BUN/CREATININE RATIO 20.2 (5.4-32.0); CHLORIDE 105 MMOL/L (99-107); CREATININE 0.84 MG/DL (0.60-1.10); GLUCOSE 143 MG/DL (70-104); MAGNESIUM 2.1 MG/DL (1.5-2.4); PHOSPHORUS 4.4 MG/DL (2.3-4.5); POTASSIUM 5.2 MMOL/L (3.5-5.1); SODIUM 137 MMOL/L (135-145); TOTAL CARBON DIOXIDE 28.4 MMOL/L (24-32); TOTAL PROTEIN 7.1 G/DL (6.4-8.2); eGFR 90 ML/MIN
[2019-08-07] MEDS ORDERED: NORepinephrine 8mg/ 250ml NS 250 ML IV SCH (04:00)
[2019-08-07] MEDS: penicillin G potassium inj 3,000,000 UNIT in normal saline 100ml IV soln 100 ML IV SCH ×5 (04:08→20:00)
[2019-08-07] MEDS: nitroPRUSSIDE (NIPRIDE) (200MCG/ML) 100ML Drip IV SCH (05:00)
--- NOTE | 2019-08-07 06:30 | NUR ---
Problems reprioritized. Patient report given, questions answered & plan of care reviewed with João STANLEY.
--- NOTE | 2019-08-07 07:21 | NUR ---
Patient in room CICU 2013. I have received report from kori and had the opportunity to ask questions and assume patient care.
[2019-08-07] MEDS: aspirin 81mg tablet.DR PO SCH (08:57)
[2019-08-07] MEDS: lactobacillus rhamnosus 10,000 MMU CELLS/CAPSULE PO SCH ×2 (08:57→20:40)
[2019-08-07] MEDS: multivitamins, therapeutics tablet PO SCH (08:58)
[2019-08-07] MEDS: docusate sod 100mg capsule PO SCH ×2 (08:58→20:40)
[2019-08-07] MEDS: potassium CL 20mEq in D5-1/2NS 1,000 ML IV SCH (09:00)
[2019-08-07] MEDS: brimonidine 0.2% 5 ML ophthalmic drops EACHEYE SCH ×2 (09:01→20:45)
[2019-08-07] MEDS: mometasone furoate 0.1% cream 15gm tube TP SCH (09:03)
[2019-08-07] MEDS: carvedilol 6.25mg tablet PO SCH ×2 (09:15→20:00)
[2019-08-07] MEDS: lactose-reduced food (Ensure Enlive) - 237ml bottle PO SCH ×2 (09:16→18:00)
[2019-08-07] MEDS: clopidogrel 75mg tablet PO SCH ×2 (09:17→15:51)
[2019-08-07] MEDS: lisinopril 5mg tablet PO SCH (09:18)
[2019-08-07] MEDS: dextrose 5%-lactated ringers 1,000 ML IV SCH (16:22)
--- NOTE | 2019-08-07 18:12 | NUR ---
Problems reprioritized. Patient report given, questions answered & plan of care reviewed with LIZETH Stiles.
--- NOTE | 2019-08-07 18:12 | NUR ---
Patient in room CICU 2013. I have received report from João STANLEY and had the opportunity to ask questions and assume patient care. Pt received awake alert & oriented. Pleasant & cooperative watching TV at this time. Speech is clear ADE @3mm bilaterally. Moves all extremities without deficit. ESTEBAN drain to left neck with scant dark red drainage neck dressing remains clean & dry. IV to left F/A #20 G infusing primary IVF without infiltration/redness or leaks. Left AC #18G saline lock is intact without redness or pain.
--- NOTE | 2019-08-07 20:00 | NUR ---
Yariel held at this time. Kaiser Singh called regarding medication & HR. Order received to hold med at this time. Addendum: 08/07/19 at 2219 by Linsey Villafuerte RN Penicillin IVPB given at 1859, pharmacy notified & instructions received to resume schedule at 0000.
[2019-08-07] MEDS: sennosides/docusate sodium tablet PO SCH (20:45)
[2019-08-08] VITALS (17 sets, daily range): BP systolic 113–169; BP diastolic 54–96
[2019-08-08] MEDS: penicillin G potassium inj 3,000,000 UNIT in normal saline 100ml IV soln 100 ML IV SCH ×4 (00:19→13:19)
[2019-08-08] MEDS: CLINDAMYCIN/D5W 900mg/50ml 50 ML IV SCH ×2 (02:15→11:47)
[2019-08-08 05:14] LABS: BASOPHILS % (AUTO) 0.4 % (0-1); EOSINOPHILS # (AUTO) 0.1 X10'3 (0-0.9); EOSINOPHILS % (AUTO) 1.8 % (0-6); HEMATOCRIT 36.5 % (42.0-52.0); HEMOGLOBIN 12.3 g/dl (14.0-17.9); LYMPHOCYTES # (AUTO) 1.3 X10'3 (1.1-4.8); LYMPHOCYTES % (AUTO) 21.5 % (21-51); MEAN CORPUSCULAR HEMOGLOBIN 28.9 PG (27.0-31.0); MEAN CORPUSCULAR HGB CONC 33.7 g/dL (33.0-36.5); MEAN CORPUSCULAR VOLUME 85.8 FL (78-98); MEAN PLATELET VOLUME 7.1 FL (7.4-10.4); MONOCYTES # (AUTO) 0.6 X10'3 (0-0.9); MONOCYTES % (AUTO) 10.7 % (2-12); NEUTROPHILS % (AUTO) 65.6 % (42-75); PLATELET COUNT 311 X10'3 (140-440); RED BLOOD COUNT 4.25 X10'6 (4.70-6.10); RED CELL DISTRIBUTION WIDTH 13.6 % (11.5-14.5); WHITE BLOOD COUNT 6.1 X10'3 (4.5-11.0)
[2019-08-08 06:09] LABS: ALANINE AMINOTRANSFERASE 46 U/L (12-78); ALBUMIN 2.4 G/DL (3.4-5.0); ALBUMIN/GLOBULIN RATIO 0.5 (1.1-1.5); ALKALINE PHOSPHATASE 53 IU/L (46-116); ANION GAP 5 (8-16); ASPARTATE AMINO TRANSFERASE 28 U/L (10-37); BILIRUBIN,TOTAL 0.4 MG/DL (0.1-1.0); BLOOD UREA NITROGEN 15 MG/DL (7-18); BUN/CREATININE RATIO 18.1 (5.4-32.0); CHLORIDE 104 MMOL/L (99-107); CREATININE 0.83 MG/DL (0.60-1.10); GLUCOSE 100 MG/DL (70-104); PHOSPHORUS 3.2 MG/DL (2.3-4.5); POTASSIUM 3.8 MMOL/L (3.5-5.1); SODIUM 138 MMOL/L (135-145); TOTAL CARBON DIOXIDE 28.8 MMOL/L (24-32); TOTAL PROTEIN 6.9 G/DL (6.4-8.2); eGFR > 90 ML/MIN
--- NOTE | 2019-08-08 06:24 | NUR ---
Problems reprioritized. Patient report given, questions answered & plan of care reviewed with Arya STANLEY.
--- NOTE | 2019-08-08 06:30 | NUR ---
Patient in room CICU 2013. I have received report from kori hahn and had the opportunity to ask questions and assume patient care.
[2019-08-08] MEDS: lactose-reduced food (Ensure Enlive) - 237ml bottle PO SCH ×2 (08:00→13:00)
[2019-08-08] MEDS: mometasone furoate 0.1% cream 15gm tube TP SCH (08:00)
[2019-08-08] MEDS: carvedilol 6.25mg tablet PO SCH (08:00)
[2019-08-08] MEDS: lactobacillus rhamnosus 10,000 MMU CELLS/CAPSULE PO SCH (09:27)
[2019-08-08] MEDS: clopidogrel 75mg tablet PO SCH (09:27)
[2019-08-08] MEDS: brimonidine 0.2% 5 ML ophthalmic drops EACHEYE SCH (09:27)
[2019-08-08] MEDS: aspirin 81mg tablet.DR PO SCH (09:27)
[2019-08-08] MEDS: multivitamins, therapeutics tablet PO SCH (09:28)
[2019-08-08] MEDS: docusate sod 100mg capsule PO SCH (09:28)
--- NOTE | 2019-08-08 11:14 | NUR ---
Reassessment: PO intake continues to fluctuate with 75-100% and some 25-50% with refusal to two meals. Pt receiving Ensure Enlive TID with 100% PO intake x 1 however refused once. ONS held on 08/06 d/t NPO for carotid artery endarterectomy. Pt with improved mentation and sepsis likely r/t RLE cellulitis doing a lot better per MD notes. Sepsis score 0 per physical assessment. [facility] 08/07. Will continue to follow. Recommend: 1. continue regular diet 2. Ensure Enlive TID 3. wt per rx Addendum: 08/08/19 at [address] Amended: Links added.
[2019-08-08] MEDS: dextrose 5%-lactated ringers 1,000 ML IV SCH (12:10)
[2019-08-08] MEDS: lisinopril 5mg tablet PO SCH (13:19)
--- NOTE | 2019-08-08 16:36 | NUR ---
ESTEBAN drain to left neck dc'd per orders.dc'd w/o difficulty, site clear,cleansed and dressed with 4x4 and tegaderm,pt. tolerated procedure well
[2019-08-08] MEDS ORDERED: CARV-49 PO (17:32)
[2019-08-08] MEDS ORDERED: [UNRECOGNIZED DRUG - CODE] PO (17:32)
[2019-08-08] MEDS ORDERED: CLOP75TA15 PO (17:32)
[2019-08-08] MEDS ORDERED: LISI-604 PO (17:32)
--- NOTE | 2019-08-08 17:53 | NUR ---
Dr. Marks at bedside and stated pt could d/c home with Plavix, ASA, Coreg, and Lisinopril plus what Dr. Pimentel stated pt should go home on; Amoxicillin 1g TID times [address] Marks provided written Rx for [place] for pt. RN called Dr. Ya and told him what Dr. Marks said. Dr. Ya stated ok to discharge pt on those medications plus his regular home meds and asked RN to place discharge orders. RN and storage and backup administrator, Zonia, placed discharge orders. Prescriptions called to [facility] pharmacy. Written Rx for [place] given to pt.
--- NOTE | 2019-08-08 18:31 | NUR ---
Took discharge picture of pts RLE cellulitis wound. Picture placed in paper chart. Reviewed discharge instructions and new medications with pt and pts daughter, both verbalized understanding. Reviewed follow-up appointments. All questions answered. IV's removed and pt disconnected from monitor. Pt dressed and discharged to daughters home. Escorted to vehicle via wheelchair by [employer].
== END 2019-08-08 18:30 | disposition home or self-care (01) | DRG 853 ==
LOC: ER 15:19 → CICU 2S 19:12 → MED 3N 08-02 16:15 → ORTHO 4S 08-06 21:24 → CICU 2S 08-06 21:28
PROVIDERS: ADMIT Internal Medicine Critical Care Medicine; ATTEND Internal Medicine Critical Care Medicine
PROC: B3251ZZ Computerized Tomography (CT Scan) of Bilateral Common Carotid Arteries using Low Osmolar Contrast (ICD-10-PCS; 2019-07-31)
PROC: B32G1ZZ Computerized Tomography (CT Scan) of Bilateral Vertebral Arteries using Low Osmolar Contrast (ICD-10-PCS; 2019-07-31)
PROC: B3281ZZ Computerized Tomography (CT Scan) of Bilateral Internal Carotid Arteries using Low Osmolar Contrast (ICD-10-PCS; 2019-07-31)
PROC: BQ2R1ZZ Computerized Tomography (CT Scan) of Right Lower Extremity using Low Osmolar Contrast (ICD-10-PCS; 2019-08-02)
PROC: 03CN0ZZ Extirpation of Matter from Left External Carotid Artery, Open Approach (ICD-10-PCS; 2019-08-06)
PROC: 03CL0ZZ Extirpation of Matter from Left Internal Carotid Artery, Open Approach (ICD-10-PCS; 2019-08-06)
PROC: 03UJ0KZ Supplement Left Common Carotid Artery with Nonautologous Tissue Substitute, Open Approach (ICD-10-PCS; 2019-08-06)
PROC: 03UL0KZ Supplement Left Internal Carotid Artery with Nonautologous Tissue Substitute, Open Approach (ICD-10-PCS; 2019-08-06)
PROC: 03UN0KZ Supplement Left External Carotid Artery with Nonautologous Tissue Substitute, Open Approach (ICD-10-PCS; 2019-08-06)
PROC: 4A10X4Z Monitoring of Central Nervous Electrical Activity, External Approach (ICD-10-PCS; 2019-08-06)
PROC: 03CJ0ZZ Extirpation of Matter from Left Common Carotid Artery, Open Approach (ICD-10-PCS; principal; 2019-08-06 17:40)
DX: A41.9 Sepsis, unspecified organism (principal); G93.41 Metabolic encephalopathy; L03.115 Cellulitis of right lower limb; R47.01 Aphasia; N39.0 Urinary tract infection, site not specified; I65.22 Occlusion and stenosis of left carotid artery; E66.01 Morbid (severe) obesity due to excess calories; F17.210 Nicotine dependence, cigarettes, uncomplicated; A46 Erysipelas; Z60.2 Problems related to living alone; L30.9 Dermatitis, unspecified; Z79.02 Long term (current) use of antithrombotics/antiplatelets; Z86.73 Personal history of transient ischemic attack (TIA), and cerebral infarction without residual deficits; Z68.31 Body mass index [BMI] 31.0-31.9, adult; Z79.899 Other long term (current) drug therapy; Z79.82 Long term (current) use of aspirin
CPT/HCPCS: 36415; 70450; 70496; 70498; 71045; 73701; 80053; 81001; 82272; 82948; 83605; 83735; 83880; 84100; 84132; 84145; 84443; 84484; 85025; 85610; 85651; 85730; 86885; 86900; 86901; 87040; 87070; 87081; 87088; 87324; 87449; 93005; 93306; 93880; 95813; 95816; 96365; 96366; 96368; 97162; 99285; A4215; A4618; A6258; A6402; A6449; A7000; C1768; C1887; G0378; J0690; J0696; J1100; J1644; J1956; J2001; J2060; J2175; J2250; J2370; J2405; J2540; J2704; J2720; J3010; J3480; J3490; J7040; J7050; J7120; J7121; P9045; Q9967

== ENCOUNTER 2022-08-31 21:20 | Emergency (ER) | payer BC, OTHER ==
[~2022-08-31] VITALS: Ht 182.9 cm; Wt 102.0 kg
[~2022-08-31 21:20] MED LIST changes: +ASPI-107 PO; -ASPI-845 PO; +BRIM5DRO3 EACHEYE; +CLOP75TA15 PO; +LISI5TAB22 PO; +MULT-1085 PO; +[UNRECOGNIZED DRUG - CODE] PO
[2022-08-31 21:34] VITALS: BP 191/114
[2022-08-31] MEDS ORDERED: cephalexin 500mg capsule PO ONE (22:10)
[2022-08-31] MEDS ORDERED: CEPH-585 PO (22:13)
== END 2022-08-31 22:30 | disposition home or self-care (01) ==
LOC: ER 21:21
DX: L03.115 Cellulitis of right lower limb (principal)
CPT/HCPCS: 99283

== ENCOUNTER 2023-08-03 10:52 | Emergency (ER) | payer BC, MEDICAID ==
[~2023-08-03] VITALS: Ht 182.9 cm; Wt 85.4 kg
[~2023-08-03 10:52] MED LIST changes: +CEPH-585 PO
[2023-08-03 10:55] VITALS: BP 125/81; PULSE 94; RESP 16; TEMP 97.6; O2SAT 94
[2023-08-03 15:17] LABS: BILIRUBIN,URINE NEGATIVE (Neg); CLARITY,URINE CLEAR (Clear); COLOR,URINE YELLOW (Yellow); GLUCOSE, URINE NEGATIVE (Neg); KETONES,URINE TRACE mg/dl (Neg); LEUKOCYTE ESTERASE ,URINE NEGATIVE (Neg); NITRITES, URINE NEGATIVE (Neg); OCCULT BLOOD,URINE NEGATIVE (Neg); PH,URINE 5.5 (4.8-8.0); PROTEIN,URINE 100 mg/dl (Neg); UROBILINOGEN,URINE 0.2 E.U/dL (0.2-1.0)
[2023-08-03 15:19] LABS: UA COLLECTION TYPE VOIDED
[2023-08-03 15:21] LABS: BACTERIA,URINE NONE SEEN /HPF (Neg); MUCUS STRANDS FEW /LPF (Neg); RBC,URINE NONE SEEN /HPF (0-2); SQUAMOUS EPITHELIAL CELL,UR NONE SEEN /LPF (FEW); WBC,URINE NONE SEEN /HPF (0-4)
[2023-08-03 15:45] LABS: MEAN CORPUSCULAR HEMOGLOBIN 28.4 PG (27.0-31.0); MEAN CORPUSCULAR HGB CONC 33.7 g/dL (33.0-36.5); PLATELET COUNT 171 X10'3 (140-440)
[2023-08-03 15:46] LABS: BASOPHILS % (AUTO) 0.5 % (0-1); EOSINOPHILS % (AUTO) 0.8 % (0-6); HEMATOCRIT 44.5 % (42.0-52.0); LYMPHOCYTES # (AUTO) 1.6 X10'3 (1.1-4.8); LYMPHOCYTES % (AUTO) 34.9 % (21-51); MEAN CORPUSCULAR VOLUME 84.2 FL (78-98); MEAN PLATELET VOLUME 7.9 FL (7.4-10.4); MONOCYTES # (AUTO) 0.6 X10'3 (0-0.9); NEUTROPHILS # (AUTO) 2.4 X10'3 (1.8-7.7); NEUTROPHILS % (AUTO) 50.8 % (42-75); RED BLOOD COUNT 5.29 X10'6 (4.70-6.10); WHITE BLOOD COUNT 4.7 X10'3 (4.5-11.0)
[2023-08-03 15:58] LABS: ALANINE AMINOTRANSFERASE 21 U/L (12-78); ALBUMIN 3.1 G/DL (3.4-5.0); ALBUMIN/GLOBULIN RATIO 0.7 (1.1-1.5); ALKALINE PHOSPHATASE 94 IU/L (46-116); ANION GAP 6 (8-16); ASPARTATE AMINO TRANSFERASE 9 U/L (10-37); BILIRUBIN,TOTAL 0.3 MG/DL (0.1-1.0); BLOOD UREA NITROGEN 21 MG/DL (7-18); CALCIUM 8.4 MG/DL (8.5-10.1); CHLORIDE 102 MMOL/L (99-107); CREATININE 1.31 MG/DL (0.60-1.10); GLUCOSE 100 MG/DL (70-104); LIPASE 205 U/L (73-393); POTASSIUM 3.9 MMOL/L (3.5-5.1); SODIUM 137 MMOL/L (135-145); TOTAL CARBON DIOXIDE 28.6 MMOL/L (24-32); TOTAL PROTEIN 7.5 G/DL (6.4-8.2); eCRCL 54 ML/MIN; eGFR 53 ML/MIN
[2023-08-03] MEDS ORDERED: amox tr/potassium clavulanate 875/125mg TAB PO ONE (16:10)
[2023-08-03] MEDS ORDERED: AMOX-117 PO (17:14)
== END 2023-08-03 17:32 | disposition home or self-care (01) ==
LOC: ER 10:52
DX: K81.0 Acute cholecystitis (principal); K82.8 Other specified diseases of gallbladder; K81.9 Cholecystitis, unspecified; Z87.891 Personal history of nicotine dependence; Z79.2 Long term (current) use of antibiotics; Z79.82 Long term (current) use of aspirin; Z79.899 Other long term (current) drug therapy
CPT/HCPCS: 36415; 71100; 71250; 74176; 76700; 80053; 81001; 83690; 83735; 85025; 99284